=== PATIENT | female | born 2000 | race Native Hawaiian/Other Pacific Islander ===

== ENCOUNTER 2023-08-21 03:40 | Inpatient (IN) | payer BC, SELFPAY ==
[2023-08-21] VITALS (8 sets, daily range): BP systolic 104–140; BP diastolic 59–77; PULSE 48–61; RESP 14–20; TEMP 36.4–36.7; O2SAT 99–100; BMI 23.9
[2023-08-21] MEDS: LACTATED RINGERS 1000ML 1,000 ML 999 ML IV (04:20)
[2023-08-21 04:36] LABS: Basophils # 0.1 K/mm3 (0-0.2); Basophils % 0.5 % (0.1-2.0); Eosinophils # 0.1 K/mm3 (0.0-0.4); Eosinophils % 1.3 % (0.1-12.0); Hematocrit 36.3 % (37.0-47.0); Hemoglobin 12.2 g/dL (12.2-16.2); Lymphocytes # 2.4 K/mm3 (0.7-4.5); Lymphocytes % 25.5 % (10-50); Mean Corpuscular HGB Conc 33.5 g/dL (31.8-35.4); Mean Corpuscular Hemoglobin 29.7 pg (27.0-31.2); Mean Corpuscular Volume 88.8 fl (81-99); Mean Platelet Volume 10.3 fl (7.4-10.4); Monocytes # 0.6 K/mm3 (0.1-1.0); Monocytes % 6.3 % (1.7-9.3); Neutrophils # 6.2 K/mm3 (1.8-7.8); Neutrophils % 66.3 % (37.0-80.0); Platelet Count 183 K/mm3 (142-424); Red Blood Count 4.09 M/mm3 (4.20-5.40); Red Cell Distribution Width 13.6 % (11.5-17.5); White Blood Count 9.4 K/mm3 (4.5-13.0)
--- NOTE | 2023-08-21 04:38 | P.HP_ITS ---
OB - H&P: HPI Antepartum History of Present Illness Chief complaint: Leakage of fluid History of present illness: Ms Matilde Tsang is a 22yo at 37w6d. She is an unattached patient. She has been receiving care with Dr. Holt at [place]. She states around 0230 she felt cramping pains in her abdomen and thought she needed to havea BM. She did have a BM and afterwards started leaking fluid continuously followed by contractions. Upon arrival to L&D she was grossly ruptured, 3-4/80/-1 and doubling footling breech. RN palpated feet on exam. She denies past medical history. Denies complications during . No history of surgeries. Denies history of drug use. History of Present Criteria for establishing EDC:: based on LMP only Obstetrical complications: malpresentation [facility] Disclaimer: The information contained in this section may have been updated after the patient was seen, as this information can be updated by other users. Medical History (Updated 08/21/23 @ 04:52 by Maricruz Pruitt DO) Spontaneous onset of labor Spontaneous rupture of amniotic membranes Breech presentation of fetus 37 weeks gestation of Social History (Updated 08/21/23 @ 04:48 by Diana Saleem CRNA) Smoking Status: Never smoker alcohol intake: never substance use type: denies use current occupational status: unemployed Travel in the last 8 weeks: None Review of Systems Review of Systems Review of systems:: pertinent systems reviewed and negative unless documented below *Genitourinary Genitourinary: Reports other (Contractions, Leakage of fluid) Meds Home Medications and Allergies New Prescriptions to Start Prescriptions: Allergies Allergy/AdvReac Type Severity Reaction Status Date / Time No Known Allergies Allergy Verified 08/21/23 04:13 OB - H&P: Exam Constitutional no acute distress and cooperative Routine HEENT Exam Head: Present normocephalic and atraumatic Eye: Absent conjunctivae pink ENT: Present mucous membranes moist Routine Neck Exam Present full ROM Routine Respiratory Exam Present CTA bilaterally and normal respiratory effort Routine Cardiovascular Exam Present RRR Routine Abdominal Exam Present soft (Gravid); Absent tenderness Routine Rectal Exam Patient deferred: visual exam Routine Exam External: Present normal urethra appearance; Absent erythema, lesions, lacerations or vulvar erythema Routine Extremities Exam Present full ROM; Absent edema or calf tenderness Routine Neurological Exam Present alert, moving all extremities and normal speech Routine Psychiatric Exam Present normal affect and cooperative Detailed Labor and Delivery Exam Dilation (cm): 4 Effacement (%): 80 station: -1 Membranes: spontaneously ruptured Amniotic fluid: clear Baseline heart rate: 135 monitor accelerations: Present monitor decelerations: None [facility] variability: Moderate (11-25) Contraction frequency (min): 2 OB - Results Labs Labs: Short CBC 08/21/23 Range/Units 04:20 WBC 9.4 (4.5-13.0) K/mm3 Hgb 12.2 (12.2-16.2) g/dL Hct 36.3 L (37.0-47.0) % Plt Count 183 (142-424) K/mm3 OB - A/P Antepartum (1) 37 weeks gestation of : Status: Acute (2) Breech presentation of fetus: Status: Acute (3) Spontaneous rupture of amniotic membranes: Status: Acute (4) Spontaneous onset of labor: Status: Acute Additional Plan Additional Information:: Admit to [facility] L&D for primary secondary to onset of labor, SROM and double footling breech presentation Discussed risks, benefits, alternatives, expectations and possible complications of surgery. All questions addressed and answered. She voiced understanding of risks and possible complications. Consent form signed. Proceed with primary .
[2023-08-21 04:41] LABS: Anion Gap 10.5 mEq/L (5-15); Blood Urea Nitrogen 8 mg/dl (7-17); Calcium 9.1 mg/dl (8.4-10.2); Carbon Dioxide 22 mmol/L (22.0-30.0); Chloride 107 mmol/L (98-107); Creatinine Clearance Estimated 124 mL/min (50-200); Estimated Glomerular Filt Rate 107 ml/min (>60); GFR (African American) 129 ML/MIN (>60); Glucose 129 mg/dl (74-100); Potassium 3.5 mmoL/L (3.5-5.1); Sodium 136 mmol/L (136-145)
--- NOTE | 2023-08-21 04:47 | EXP.ANES.CKL ---
[facility] Disclaimer: The information contained in this section may have been updated after the patient was seen, as this information can be updated by other users. Social History Smoking Status: Never smoker alcohol intake: never substance use type: denies use current occupational status: unemployed Travel in the last 8 weeks: None [facility] Anesthesia Checklist Patient Identification Patient Identification: Arm Band and Verbal (Name & ) Structural Data Admitted From: Home Planned Operative Procedure/s: C/Section Consent for Planned Operative Procedure(s) Verified: Yes Verified Documents: History and Physical NPO Status Verified Time NPO: 19:00 Chart Verification Results Verified: CBC and BMP Additional verifications Patient : Yes Anesthesia Reactions: No Airway Assessment Mallampati Score:: Class II C-Spine Mobility Assessed: Yes TMJ Mobility Assessed: Yes Dentition: Good Dentition Neurological Assessment Level of Consciousness: Awake Hx Seizures: No Numbness or tingling in extremities: No Anesthesia Plan Anesthesia Risk discussed: Yes Anesthesia Plan: Verified ASA Class: II Anesthesia Type: Spinal
[2023-08-21 04:49] LABS: Fetal Membrane Rupture (Rapid) Positive (Negative)
[2023-08-21] MEDS: CEFAZOLIN SODIUM 2 GM in 0.9 % SODIUM CHLORIDE 100 ML IV ×3 (04:54→20:08)
[2023-08-21 05:45] LABS: Cord Blood PH 7.38 (7.35-7.45)
--- NOTE | 2023-08-21 06:27 | P.OP_ITS ---
Date of procedure: 08/21/23 Pre-op Diagnosis:: 1. IUP at 37w5d 2. Spontaneous rupture of membranes 3. Onset of labor 4. Double footling breech presentation Post-op Diagnosis:: 1. IUP at 37w5d 2. Spontaneous rupture of membranes 3. Onset of labor 4. Double footling breech presentation Procedure performed:: Primary Low Transverse Section Surgeon:: Maricruz Pruitt DO Heel Room Supervisor(s):: [facility] SUPERVISOR SPINNING:: Abel Shepherd Anesthesia: spinal Estimated blood loss (mL): 200 Clinical Note:: Ms Matilde Tsang is a 22yo at 37w5d. She is an unattached patient. She has been receiving care with Dr. Holt at [place]. She states around 0230 she felt cramping pains in her abdomen and thought she needed to havea BM. She did have a BM and afterwards started leaking fluid continuously followed by contractions. Upon arrival to L&D she was grossly ruptured, 3-4/80/-1 and doubling footling breech. RN palpated feet on exam. She denies past medical history. Denies complications during . No history of surgeries. Denies history of drug use. Operative findings:: 1. Live male baby, Tanmay Dockery, weighing 7 lb 14 oz. Apgars 6 (1 min), 9 (5 min) 2. Breech presentation 3. Grossly normal appearing uterus, bilateral fallopian tubes and ovaries Operative note:: The risks, benefits and alternatives of the procedure were reviewed with the patient. Informed consent was obtained. Patient was taken to the operating room where spinal anesthesia was placed. The patient received 2 grams of Ancef preoperatively. Patient was placed in dorsal supine position with a leftward tilt. SCDs in place. Hua catheter inserted and was draining clear urine prior to the start of the procedure. heart tones were obtained. Vagina was prepped with Betadine swabs x 3. Patient was then prepped and draped in normal sterile fashion. Allis clamp test was performed to ensure adequate anesthesia. A Pfannenstiel skin incision was made 2 cm above pubic symphysis. This was carried through to underlying layer of fascia. Fascia was incised in midline, extended laterally with Tao scissors. Superior aspect of fascial incision was grasped with two Patricia clamps, elevated up, and rectus muscle dissected off bluntly and sharply with Tao scissors. Inferior aspect of fascial incision was grasped with two Patricia clamps, elevated up, and rectus muscle dissected off bluntly and sharply with Tao scissors.The retcus muscle was then in the midline and the peritoneum was entered bluntly with a digit. Peritoneal incision was then extended superiorly and inferiorly with good visualization of the bladder. Butch retractor was inserted. The lower uterine segment was incised in a transverse fashion. Baby's buttock and hips were presenting. Baby was delivered using standard breech delivery techniques. Mouth and nares were bulb suctioned. Spontaneous cry was noted. The umbilical cord was clamped and cut. The infant was handed to awaiting pediatric staff in stable condition. Dr. Ordoñez was present. Apgars were 6(1 min), 9(5 min). Cord gases and cord blood was obtained. Gentle traction on the umbilical cord and uterine fundal massage delivered the placenta. Placenta was intact. Placenta will be sent to pathology for review. Uterus was cleared of all clots and debris with a moist laparotomy sponge. Corners of the uterine incision were grasped with Allis clamps. The uterine incision was reapproximated with # 1 Vicryl suture in a running, locked stitch. Second layer of the same stitch was used to imbricate the incision. Hemostasis was noted. Posterior cul-de-sac was cleaned with moist laparotomy sponge. Gutters cleared of all clots and debris with a moist laparotomy sponge. Reinspec tion of the lower uterine segment demonstrated small amount of oozing. Surgicel powder was applied over uterine incision. Hemostasis was noted. At this point all instruments and sponges were removed from the pelvis.? The peritoneum was grasped with Eulalia clamps x 3. The peritoneum was reapproximated with 0 Vicryl suture in a running stitch. The corners of the fascia were grasped with Patricia clamps, and the fascia was reapproximated with two # 1 Vicryl suture overlapped to the right of midline. Subcutaneous tissue was irrigated with clear return of fluids. The subcutaneous tissue was reapproximated with 3-0 Vicryl. The skin was reapproximated with Insorb sergey. Telfa was placed over closed Pfannenstiel skin incision. At the end of the procedure, the uterus was firm with minimal vaginal bleeding. Patient tolerated the procedure well. Instrument, sponges and needle counts were correct x 2. Mom and baby were transported to recovery room in stable condition. Condition: stable Disposition: floor Specimens:: 1. Placenta and umbilical cord 2. Cord blood Complications:: None
--- NOTE | 2023-08-21 06:29 | EXP.ANES.I ---
[facility] Anesthesia Record Part I Anesthesia Record I Intake, IV Amount: 1,000 Hydration: Adequate Estimated blood loss (mL): 200 Urine output (mL): 50 Blood Pressure: 131/60 SaO2: 100 Pulse Rate: 58 Airway Patency: Patent Respiratory Rate: 14 Temperature: 97.5 F Patient is:: Awake Stable to PACU at:: 06:25
[2023-08-21 07:04] LABS: Microscopic, Urine URINE MICROSCOPIC (MICROSCOPIC)
[2023-08-21 07:06] LABS: Appearance,Urine CLEAR (Clear); Bilirubin,Urine Negative (Negative); Blood, Urine Negative (Negative); Color,Urine YELLOW (Yellow); Glucose,Urine (UA) Negative (Negative); Ketones,Urine Negative (Negative); Leukocyte Esterase,Urine Negative (Negative); Nitrate,Urine Negative (Negative); PH,Urine 6.5 (5.0-8.5); Protein,Urine Negative (Negative)
[2023-08-21 07:19] LABS: Amphetamine/Metha Screen,Urine Negative ng/ml (<1000); Barbiturates Screen,Urine Negative ng/ml (<200)
[2023-08-21 07:20] LABS: Benzodiazepines Screen,Urine Negative ng/ml (<200)
[2023-08-21 07:21] LABS: Cannabinoid Screen,Urine Negative ng/ml (<50); Cocaine Screen,Urine Negative ng/ml (<300)
[2023-08-21 07:22] LABS: Methadone Screen,Urine Negative ng/ml (<300); Opiate Screen,Urine Negative ng/ml (<300)
[2023-08-21 07:23] LABS: Phencyclidine Screen,Urine Negative ng/ml (<25)
[2023-08-21] MEDS: OXYTOCIN/RINGERS LACTATE 30 UNITS/500 ML BAG 40 UNITS IV (07:26)
[2023-08-21] MEDS: LACTATED RINGERS 1000ML 1,000 ML 125 ML IV (07:26)
[2023-08-21 07:42] LABS: Bacteria,Urine Trace /lpf; Squamous Epithelial Cell,Urine Occasional #/hpf (0-5); WBC,Urine Occasional #/hpf (0-3)
[2023-08-21] MEDS: ACETAMINOPHEN 500MG TAB 1000 MG PO ×2 (07:43→17:04)
[2023-08-21] MEDS: HYDROMORPHONE 2MG/ML SYRINGE 2 MG IV (10:32)
[2023-08-21] MEDS: KETOROLAC 30MG/ML VIAL 30 MG IV ×2 (13:21→20:08)
[2023-08-21] MEDS: ONDANSETRON 4MG/2ML VIAL 4 MG IV (13:32)
[2023-08-21] MEDS: PRENATAL MULTIVITAMIN W/IRON 1 EACH PO (17:04)
[2023-08-22] MEDS: KETOROLAC 30MG/ML VIAL 30 MG IV (02:11)
[2023-08-22] MEDS: ACETAMINOPHEN 500MG TAB 1000 MG PO ×4 (02:11→20:11)
--- NOTE | 2023-08-22 05:13 | EXP.PN ---
Subjective *Date: 08/22/23 *Time: 08:19 Interval history: Matilde Tsang is a G2, P1011 day #1 following a primary low-transverse delivery secondary to breech presentation in active labor at 37 weeks and 5 days gestation. Routine delivery and course. She is doing well, sitting up in bed, and visiting with family this morning. -Reports pain is well-controlled -Reports she is tolerating p.o. without nausea or vomiting. -Reports her lochia is scant. -She is breast-feeding her male -Ambulating, voiding difficulty or dysuria. Denies chest pain shortness of breath or pain in her legs. No further complaints at this time. Exam Data for Last 24 hours Vital signs and Labs for Last 24 Hours: Temp Pulse Resp BP Pulse Ox O2 Del Method 98.1 F 48 L 16 123/59 L 100 Room Air 08/21/23 16:10 08/21/23 16:10 08/21/23 16:10 08/21/23 16:10 08/21/23 16:10 08/21/23 16:10 Laboratory Results - last 24 hr 08/21/23 04:20: Antibody Screen Negative 08/21/23 05:00: Urine Color Yellow, Urine Appearance Clear, Urine pH 6.5, Ur Specific [place] 1.020, Urine Protein Negative, Urine Glucose (UA) Negative, Urine Ketones Negative, Urine Blood Negative, Urine Nitrate Negative, Urine Bilirubin Negative, Urine Urobilinogen 1.0, Ur Leukocyte Esterase Negative, Urine RBC None, Urine WBC Occasional, Ur Squamous Epith Cells Occasional, Urine Bacteria Trace, Urine Opiates Screen Negative, Urine Methadone Screen Negative, Ur Barbituates Screen Negative, Ur Phencyclidine Scrn Negative, Ur Amphetamines Screen Negative, U Benzodiazepines Scrn Negative, Urine Cocaine Screen Negative, U Marijuana (THC) Screen Negative 08/21/23 05:41: Cord ABG pH 7.38 I & O for Last 24 hours: Intake & Output 08/19/23 08/20/23 08/21/23 08/22/23 23:59 23:59 23:59 23:59 Intake Total 1000 / 1000 Balance 1000 / 1000 Weight 135 lb Narrative: General: patient is alert oriented in no acute distress and responds appropriately to questions. Appears to be in minimal pain. Sitting up in the chair and doing well HEENT: NCAT, EOMI, moist mucous membranes, neck supple with full ROM Cardiovascular: RRR +S1/S2, no murmurs or rubs Pulmonary: Clear to auscultation bilaterally, nonlabored breathing, symmetric chest rise Abdominal: Fundus below the umbilicus, firm, and tenderness appropriate for the period. Extremities: trace edema, no tenderness or cyanosis noted Skin: Normal turgor, intact, warm. Negative for erythema, pallor, petechia, or lesions. Incision appears to be well-healing without any signs of infection. No oozing, bleeding, drainage, or erythema noted Neurologic: Negative for sensory or motor deficit Psychiatric: Normal affect, normal thought process, good judgment and insight, no depression or anxious mood appreciated. Assessment and Plan *Assessment and plan (1) Spontaneous onset of labor: Status: Acute Category: Medical (2) Spontaneous rupture of amniotic membranes: Status: Acute Category: Medical (3) Breech presentation of fetus: Status: Acute Category: Medical Code(s): O32.1XX0 - Maternal care for breech presentation, not applicable or unspecified (4) 37 weeks gestation of : Status: Acute Category: Medical Code(s): Z3A.37 - 37 weeks gestation of Plan Stable. POD#1 s/p PLTCS -Doing well. VSS. Serial lochia and fundal checks. -Continue with perineal ice packs for discomfort -Hemoglobin: 12.2--> 10.0 -O+/antibody negative -, male -Contraception: undecided -Follow-up 2 weeks for routine visit -Dispo: home tomorrow pending mother/infant status
[2023-08-22] MEDS: OXYCODONE 5MG IMMEDIATE RELEASE TABLET 5 MG PO ×2 (05:15→14:27)
[2023-08-22 05:42] LABS: Basophils % 0.3 % (0.1-2.0); Eosinophils # 0.1 K/mm3 (0.0-0.4); Eosinophils % 0.7 % (0.1-12.0); Hematocrit 30.6 % (37.0-47.0); Lymphocytes # 1.6 K/mm3 (0.7-4.5); Lymphocytes % 14.9 % (10-50); Mean Corpuscular HGB Conc 32.6 g/dL (31.8-35.4); Mean Corpuscular Volume 91.9 fl (81-99); Mean Platelet Volume 11.2 fl (7.4-10.4); Monocytes # 0.5 K/mm3 (0.1-1.0); Monocytes % 4.2 % (1.7-9.3); Neutrophils # 8.7 K/mm3 (1.8-7.8); Neutrophils % 79.9 % (37.0-80.0); Platelet Count 166 K/mm3 (142-424); Red Blood Count 3.33 M/mm3 (4.20-5.40); Red Cell Distribution Width 13.5 % (11.5-17.5); White Blood Count 10.9 K/mm3 (4.5-13.0)
[2023-08-22] MEDS: IBUPROFEN 400 MG TABLET 800 MG PO ×2 (08:34→17:48)
--- NOTE | 2023-08-22 09:39 | EXP.ANES.II ---
[facility] Anesthesia Record Part II Anesthesia Record Part II Discharge Time: 06:55 Destination: Surgical Day Care (OP Surgery) PACU nurse assessment reviewed?: Yes Patient Condition:: Good Anesthesia Complications:: None Swallowing reflex intact?: Yes Airway Patency: Patent Cyanosis?: No Blood Pressure: 136/70 SaO2: 100 Respiratory Rate: 15 Pulse Rate: 55 Temperature: 97.5 F Mental Status: Alert & Oriented Pain level:: 0 Nausea and/or vomitting:: None Intake, IV Amount: 0 Hydration: Adequate
[2023-08-22 09:40] VITALS: BP 136/70; PULSE 55; RESP 15; TEMP 36.4; O2SAT 100
[2023-08-22] MEDS: SENNA 8.6MG TABLET 8.59999999999999964 MG PO (17:48)
[2023-08-22] MEDS: PRENATAL MULTIVITAMIN W/IRON 1 EACH PO (17:48)
[2023-08-23] MEDS: SIMETHICONE 80MG CHEWABLE TABLET 160 MG PO (01:35)
[2023-08-23] MEDS: IBUPROFEN 400 MG TABLET 800 MG PO (01:35)
[2023-08-23 08:03] VITALS: BP 109/57; PULSE 94; RESP 16; TEMP 37.1; O2SAT 99
--- NOTE | 2023-08-23 09:53 | EXP.DC.SUM ---
General Admission date:: 08/21/23 Discharge date: 08/23/23 HPI HPI HPI: OB - H&P: HPI Antepartum History of Present Illness Chief complaint: Leakage of fluid History of present illness: Ms Matilde Tsang is a 22yo at 37w5d. She is an unattached patient. She has been receiving care with Dr. Holt at [place]. She states around 0230 she felt cramping pains in her abdomen and thought she needed to havea BM. She did have a BM and afterwards started leaking fluid continuously followed by contractions. Upon arrival to L&D she was grossly ruptured, 3-4/80/-1 and doubling footling breech. RN palpated feet on exam. She denies past medical history. Denies complications during . No history of surgeries. Denies history of drug use. History of Present Criteria for establishing EDC:: based on LMP only Obstetrical complications: malpresentation Hospital Course Hospital Course Hospital Course: Matilde Tsang is a G2, P1011 day #2 following a primary low-transverse delivery secondary to breech presentation in active labor at 37 weeks and 5 days gestation. Routine delivery and course. She is doing well, sitting up in bed, and visiting with family this morning. -Reports pain is well-controlled -Reports she is tolerating p.o. without nausea or vomiting. -Reports her lochia is scant. -She is breast-feeding her male infant -Ambulating, voiding difficulty or dysuria. Denies chest pain shortness of breath or pain in her legs. No further complaints at this time. She delivered a live viable male infant on 08/21/2023 weighing 7 pounds and 14 ounces with Apgars of 6/9. Patient desires discharge home today. Routine discharge instructions reviewed with patient in detail and she was understanding. All questions and concerns were addressed. Patient is previously used OCPs for contraception and would like to do this again. Encourage patient to discuss this with her primary OB at her /follow-up visits. Reviewed baby blues and depression signs and symptoms. The patient did have an ED PS score of 8 at discharge. Will follow her closely. Exam Data for Last 24 hours Vital signs and Labs for Last 24 Hours: Temp Pulse Resp BP Pulse Ox O2 Del Method 98.1 F 48 L 15 123/59 L 100 Room Air 08/21/23 16:10 08/21/23 16:10 08/22/23 09:40 08/21/23 16:10 08/21/23 16:10 08/21/23 16:10 I & O for Last 24 hours: Intake & Output 08/20/23 08/21/23 08/22/23 08/23/23 23:59 23:59 23:59 23:59 Intake Total 1000 / 1000 0 / 0 Balance 1000 / 1000 0 / 0 Weight 135 lb Narrative: General: patient is alert oriented in no acute distress and responds appropriately to questions. Appears to be in minimal pain. Sitting up in the chair and doing well. Currently pumping HEENT: NCAT, EOMI, moist mucous membranes, neck supple with full ROM Cardiovascular: RRR +S1/S2, no murmurs or rubs Pulmonary: Clear to auscultation bilaterally, nonlabored breathing, symmetric chest rise Abdominal: Fundus below the umbilicus, firm, and tenderness appropriate for the period. Extremities: trace edema, no tenderness or cyanosis noted Skin: Normal turgor, intact, warm. Negative for erythema, pallor, petechia, or lesions. Incision appears to be well-healing without any signs of infection. No oozing, bleeding, drainage, or erythema noted Neurologic: Negative for sensory or motor deficit Psychiatric: Normal affect, normal thought process, good judgment and insight, no depression or anxious mood appreciated. DS: Diagnosis Discharge Diagnosis (1) Spontaneous onset of labor: Status: Acute (2) Spontaneous rupture of amniotic membranes: Status: Acute (3) Breech presentation of fetus: Status: Acute Code(s): O32.1XX0 - Maternal care for breech presentation, not applicable or unspecified (4) 37 weeks gestation of : Status: Acute Code(s): Z3A.37 - 37 weeks gestation of Meds Home Medications and Allergies Home Medications Medication Instructions Recorded Confirmed Type acetaminophen 500 mg tablet 500 mg PO Q6H PRN fever #30 tabs 08/23/23 Rx ferrous sulfate 325 mg (65 mg 325 mg PO DAILY #30 tabs 08/23/23 Rx iron) tablet,delayed release ibuprofen 800 mg tablet 800 mg PO Q8H PRN pain #60 tabs 08/23/23 Rx oxycodone 5 mg tablet 5 mg PO Q8H PRN pain #15 tabs 08/23/23 Rx sennosides 8.6 mg tablet (Senna 8.6 mg PO BIDP PRN Constipation 08/23/23 Rx Lax) #60 tabs simethicone 125 mg tablet 125 mg PO DAILY PRN abdominal 08/23/23 Rx distention #60 tabs New Prescriptions to Start Prescriptions: acetaminophen Adama,Jennifer ferrous sulfate Adama,Jennifer ibuprofen Adama,Jennifer oxycodone Adama,Jennifer sennosides [Senna Lax] Adama,Jennifer simethicone Jennifer Galan Allergies Allergy/AdvReac Type Severity Reaction Status Date / Time No Known Allergies Allergy Verified 08/21/23 04:13 Discharge Plan Disposition Patient Disposition: Home, Self-Care Discharge Order Discharge Orders: Discharge Order (Routine); Ordered 08/23/23 Ordered By: Jennifer Galan Follow up Plan Follow up with: Maricruz Pruitt DO [Staff Physician] - Enter time for follow up Prescriptions/Medication Reconciliation: New sennosides [Senna Lax] 8.6 mg Tablet 8.6 mg PO BIDP PRN (Reason: Constipation) Qty: 60 2RF ibuprofen 800 mg tablet 800 mg PO Q8H PRN (Reason: pain) Qty: 60 2RF acetaminophen 500 mg tablet 500 mg PO Q6H PRN (Reason: fever) Qty: 30 3RF ferrous sulfate 325 mg (65 mg iron) tablet,delayed release (DR/EC) 325 mg PO DAILY Qty: 30 3RF oxycodone 5 mg tablet 5 mg PO Q8H PRN (Reason: pain) Qty: 15 0RF simethicone 125 mg tablet 125 mg PO DAILY PRN (Reason: abdominal distention) Qty: 60 2RF Problem Reconciliation Problems Reviewed?: Yes Patient Discharge Instructions ACTIVITY: Continue current activity DIET: regular diet Additional Instructions: Congratulations on the delivery of your sweet baby boy. It is my privilege to be a part of your special day. Discharge: 1. Take 800 mg Ibuprofen every 8 hours as needed for pain. You can also take 500-1000 mg of Tylenol in between doses, every 6-8 hours. Use prescription pain medicine for pain you feel in between 8 hour interval. -No driving while taking narcotic pain medications. In order to drive you should be able to slam on the brakes without significant abdominal pain. 2. Wean from prescription pain medicine first. Do not drive while taking it. 3. Prescription pain medicine can make you constipated. Colace can be taken 1-2 times per day as you need. Make sure to drink at least 8 cups of water per day. 4. Iron supplements can make you constipated. Colace can be taken 1-2 times per day as you need. You can take iron tablets every other day if constipation is too bad. 5. Nothing in the vagina for 6 weeks - no sex, douching, tampons. No tub baths 6. Do not lift greater than 15 pounds for 6 weeks, this is the equivalent of 2 gallons of milk. 7. Reasons to return to L&D or call On-Call doctor - fever (greater than 100.4) - heavy vaginal bleeding (soaking through 1 pad in less than 2 hours or passing clots that are egg sized) - vaginal discharge (malodorous and/or purulent) - bleeding or discharge from her incision - severe headaches, leg tenderness/edema, or any other symptoms that warrant immediate medical attention. 8. depression/blues - Normal to feel anxious/overwhelmed for first 2 weeks - Talk to your doctor if: anxiety lasts over 2 weeks, trouble bonding with baby, withdrawing from other family members, thoughts of harming yourself or others Jennifer Galan DO [facility] [phone] *Nothing in the Vagina for 6 weeks* *No strenuous activity* *No heavy lifting* *No tub baths until okay's by MD* Patient Instructions: Depression, Hemorrhage, DI for , DI for Pre-eclampsia, H Post Discharge Instructions Providers Primary Care Provider: Christoph Holguin III Admit Provider: Maricruz Pruitt Attending Provider: Maricruz Pruitt
== END 2023-08-23 14:02 | disposition home or self-care (01) | DRG 788 ==
PROVIDERS: Admitting Provider Obstetrics & Gynecology; PCP Obstetrics & Gynecology; Visit Provider Obstetrics & Gynecology
PROC: 10D00Z1 Extraction of Products of Conception, Low, Open Approach (ICD-10-PCS; CPT 59514; principal; 2023-08-21 05:30)
DX: O32.8XX0 Maternal care for other malpresentation of fetus, not applicable or unspecified (principal); Z3A.37 37 weeks gestation of pregnancy; Z37.0 Single live birth
CPT/HCPCS: 59514; 36415; 59025; 80048; 80307; 81001; 82800; 84112; 85025; 86850; 94761; C9290; G0283; J0131; J1170; J1885; J2250; J2405; J7120

== ENCOUNTER 2024-06-24 19:37 | Emergency (ER) | payer OTHER, SELFPAY ==
[2024-06-24 19:44] VITALS: BP 98/50; PULSE 75; RESP 16; TEMP 37; O2SAT 100; BMI 19.5
[2024-06-24 20:35] VITALS: BP 95/50; PULSE 74; RESP 16; TEMP 37; O2SAT 100
--- NOTE | 2024-06-24 20:35 | ED_ITS ---
<Statement entered by Zuleyka Hickman MD - 06/24/24 21:10> I was consulted by the LUCIA, and we discussed the complexity of problems being addressed. I approved the treatment and management plan for this patient's care in the emergency department, thus performing a substantive portion of the medical decision making. Zuleyka Hickman MD Discharge Plan Disposition Patient Disposition: Home, Self-Care Prescriptions Prescriptions: No Action norethindrone (contraceptive) 0.35 mg tablet 0.35 mg PO DAILY Qty: 84 4RF sennosides [Senna Lax] 8.6 mg Tablet 8.6 mg PO BIDP PRN (Reason: Constipation) Qty: 60 2RF ibuprofen 800 mg tablet 800 mg PO Q8H PRN (Reason: pain) Qty: 60 2RF acetaminophen 500 mg tablet 500 mg PO Q6H PRN (Reason: fever) Qty: 30 3RF ferrous sulfate 325 mg (65 mg iron) tablet,delayed release (DR/EC) 325 mg PO DAILY Qty: 30 3RF simethicone 125 mg tablet 125 mg PO DAILY PRN (Reason: abdominal distention) Qty: 60 2RF Referrals Follow up/Referrals: Provider,Referral, [Primary Care Provider] - See instructions Activity Restrictions/Add. Instructions Additional Instructions/Restrictions: Please use a warm compress on the area 3 times a day, use your antibiotic ointment 3 times a day. Please follow-up with eye doctor within 1 week. If condition is worsening please return to the ED Clinical Impressions Clinical Impression: Lacrimal duct infection Qualifiers: Laterality: left Qualified Code(s): H04.302 - Unspecified dacryocystitis of left lacrimal passage Instructions Patient Instructions: DI for Blepharitis Print Language Print Language: Belgian Discharge ED Provider: Zuleyka Hickman General Adult HPI General Chief complaint: Eye Problems Stated complaint: left eye drainage Time Seen by Provider: 06/24/24 20:23 Mode of Arrival: Ambulatory Source of Information: Patient Description of Symptoms (Recalled from ER Triage Doc. by RN): Pt states her eye has been itchy and draining for a few days and today having a swollen area in eye History of Present Illness HPI narrative: patient is a 23-year-old female no significant PMHx who presents to the ED for 3 days of left eye irritation, itching and drainage. Patient states she has not had any history of eye issues in the past. Does not have any visual deficits at this time. Related Data Previous Rx's ?Medication ?Instructions ?Recorded acetaminophen 500 mg tablet 500 mg PO Q6H PRN fever #30 tabs 08/23/23 ferrous sulfate 325 mg (65 mg 325 mg PO DAILY #30 tabs 08/23/23 iron) tablet,delayed release ibuprofen 800 mg tablet 800 mg PO Q8H PRN pain #60 tabs 08/23/23 sennosides 8.6 mg tablet (Senna 8.6 mg PO BIDP PRN Constipation 08/23/23 Lax) #60 tabs simethicone 125 mg tablet 125 mg PO DAILY PRN abdominal 08/23/23 distention #60 tabs norethindrone (contraceptive) 0.35 0.35 mg PO DAILY #84 tabs 10/06/23 mg tablet Allergies Allergy/AdvReac Type Severity Reaction Status Date / Time No Known Allergies Allergy Verified 10/06/23 11:22 [facility] Disclaimer: The information contained in this section may have been updated after the patient was seen, as this information can be updated by other users. Medical History No significant past medical history Surgical History History of Family History Grandmother Cancer Social History Smoking Status: Never smoker alcohol intake: never substance use type: denies use current occupational status: unemployed Travel in the last 8 weeks?: None Have you lived/traveled outside [place] in past 30 days?: No Contact w/someone who lives/traveled outside [place] past 30 days?: No Exposure to someone with infectious disease in past 14 days?: No Do you have a fever (greater than 100.4 F or 38 C)?: No Have you tested positive for COVID-19?: No Exposed to someone with COVID-19 in past 14 days?: No Do you have a sore throat?: No Do you have a cough?: No Do you have any weakness?: No Do you have any diarrhea?: No Are you experiencing any unusual bleeding?: No Do you have any muscle aches/pain?: No Do you have any abdominal pain?: No Are you experiencing loss of taste or smell?: No Other Medical History Have you received the Flu Vaccine for this season: No Have you received the Pneumonia Vaccine: No ROS Obtained: Yes Systems reviewed as appropriate & no additional complaints except as documented Physical Exam General General appearance: alert and in no apparent distress Head Head exam: atraumatic and normocephalic Eye Eye exam: Present normal appearance, PERRL, EOMI and other (Edema of the left lacrimal duct, purulent drainage noted) ENT ENT exam: Present normal exam Neck Neck exam: Present normal inspection Chest Chest inspection: Present normal inspection and symmetric chest wall rise; Absent tenderness Respiratory Respiratory exam: Present normal lung sounds bilaterally Cardiovascular Cardiovascular exam: Present regular rate Abdominal Exam Abdominal exam: Present soft and normal bowel sounds; Absent tenderness Extremities Exam Extremities exam: Present normal inspection and full ROM Back Exam Back exam: Present normal inspection and full ROM Neurological Exam Neurological exam: Present alert and oriented X3 Psychiatric Psychiatric exam: Present normal affect and normal mood Skin Skin exam: Present warm and dry Medical Decision Making Medical Records Screening: Per USPSTF and CDC recommendations, given the prevalence of disease in our region, it is our hospital?s policy to screen for HIV and viral Hepatitis for all patients aged 18 and over and those with ongoing risk factors. Donn Inquiry Pt receiving controlled substance: No Vital Signs: 06/24/24 19:44 Temperature 98.6 F Temperature Source Oral Pulse Rate [Right Brachial] 75 Respiratory Rate 16 Blood Pressure [Right Arm] 98/50 L Blood Pressure Mean [Right Arm] 66 Blood Pressure Source [Right Arm] Automatic Cuff Blood Pressure Position [Right Arm] Sitting 02 Sat by Pulse Oximetry 100 Oxygen Delivery Method Room Air Orders (Tests/Meds): ED MEDICATIONS Discontinued Medications Generic Name Dose Route Start Last Admin Trade Name Freq PRN Reason Stop Dose Admin Erythromycin 0.25 gm 06/24/24 20:31 Erythromycin Base 3.5 Gm Oint...G. OP 06/24/24 20:32 ONCE ONE ORDERS Category Date Time Status HIV Combo Routine Lab 06/24/24 19:48 Ordered Hepatitis C Ab Qual. W/ RFX Routine Lab 06/24/24 19:48 Ordered Medical Decision Narrative: In summary, patient is a 23-year-old female no significant PMHx who presents to the ED for 3 days of left eye irritation, itching and drainage. Patient states she has not had any history of eye issues in the past. Does not have any visual deficits at this time. Denies fever, chills, body aches, chest pain, shortness of breath. Upon initial evaluation, patient is alert, oriented cooperative. She is hemodynamically stable, afebrile. Physical exam reveals left lacrimal duct edema, purulent drainage from the area. No symptoms of orbital cellulitis. No pain with EOM. Differential diagnosis include lacrimal duct cyst, conjunctivitis, blocked tear duct, among others. Discussed with patient that we will administer a dose of erythromycin ointment and a tube that she can use for the next several days 3 times a day. Advised her to use warm compresses on the area. Advised her to follow-up with eye doctor within 1 week. We discussed return precautions to the ED. Patient verbalized understanding. Critical Care Critical Care Time Critical Care Time: No
== END 2024-06-24 20:40 | disposition home or self-care (01) ==
PROVIDERS: Emergency Provider Student in an Organized Health Care Education/Training Program
DX: H04.302 Unspecified dacryocystitis of left lacrimal passage (principal)
CPT/HCPCS: 99283